=== PATIENT | male | born 1945 | race American Indian/Alaskan Native ===

== ENCOUNTER 2017-04-26 20:49 | Emergency (ER) | payer OTHER ==
[~2017-04-26] VITALS: Ht 170.2 cm; Wt 72.6 kg
[~2017-04-26 20:49] MED LIST: ALBUTEROL SULF8.5 GM INH; ASPIRIN EC81 MG PO; GUAIATUSSIN AC10 ML PO; SYMBICORT 16010.2 GM INH; SYNTHROID100 MCG PO
[2017-04-26] MEDS ORDERED: TAMIFLU75 MG PO (21:25)
[2017-04-26] MEDS ORDERED: ACETAMINOPHEN-1 EAC1 PO (21:25)
== END 2017-04-26 21:40 | disposition home or self-care (01) ==
LOC: ED 20:49
DX: J11.1 Influenza due to unidentified influenza virus with other respiratory manifestations (principal); E03.9 Hypothyroidism, unspecified; J44.9 Chronic obstructive pulmonary disease, unspecified; F17.200 Nicotine dependence, unspecified, uncomplicated; Z88.0 Allergy status to penicillin; Z88.8 Allergy status to other drugs, medicaments and biological substances; Z79.899 Other long term (current) drug therapy; Z79.82 Long term (current) use of aspirin
CPT/HCPCS: 99283